=== PATIENT | male | born 1955 | race Caucasian/White ===

== ENCOUNTER → 2020-10-01 | Outpatient (CLI) | payer OTHER, MEDICARE ==
[~2020-10-01] MED LIST: ARTIFICIAL TEA1 EACH OP; ASPIR 8181 MG PO; ASPIRIN CHEWABL81 MG PO; ASPIRIN EC81 MG PO; AUGMENTIN 875-1 EACH PO; BACTROBAN CREAM15 GM TOP; BUSPAR 10MG10 MG PO; CALCIUM ANTACI200 MG PO; CELEBREX100 MG PO; CELEBREX200 MG PO; CLOPIDOGREL75 MG PO; COLACE 100MG C100 MG PO; COLACE100 MG PO; COZAAR 50MG TAB50 MG PO; DEPAKOTE ER250 MG PO; DESYREL 50 MG T50 MG PO; DOLOBID 500 MG500 MG PO; DULCOLAX10 MG PR; EFFEXOR XR 75 M75 MG PO; FLAGYL500 MG PO; FLEXERIL 10 MG10 MG PO; GLUCOPHAGE1000 MG PO; GLUCOPHAGE500 MG PO; HUMULIN 70100 UNIT/1 SQ; IBUPROFEN600 MG PO; KEFLEX CAP 500500 MG PO; KLONOPIN TAB 00.5 MG PO; LIPITOR TAB 2020 MG PO; LIPITOR80 MG PO; LISINOPRIL5 MG PO; MELOXICAM15 MG PO; METFORMIN HCL500 MG PO; METHOCARBAMOL750 MG PO; MOBIC7.5 MG PO; MULTIVITAMINS1 EAC1 PO; NEURONTIN 300300 MG PO; NEURONTIN 400400 MG PO; NOVOLIN 70100 UNIT/1 SQ; NOVOLOG MI100 UNITS/ SQ; PEPCID20 MG PO; PEPCID40 MG PO; PLAVIX 75 MG TA75 MG PO; PREVACID30 MG PO; PRINIVIL5 MG PO; PROVENTIL HFA 61 INH INH; ROBAXIN 750 MG750 MG PO; SENNA-DOCUSATE1 EACH PO; TERAZOSIN HCL2 MG PO; TESSALON PERLE100 MG PO; TRAZODONE HCL100 MG PO; TRAZODONE HCL50 MG PO; VENLAFAXINE HC150 M1 PO; VENLAFAXINE HC150 MG PO; VENTOLIN HFA 66.7 GM INH; VOLTAREN ARTHRI20 GM TOP; VOLTAREN100 GM TP; Voltaren Gel 1% TOP; ZOFRAN ODT4 MG PO; ZYVOX600 MG PO; [UNRECOGNIZED DRUG - OTHER] TP; [UNRECOGNIZED DRUG - OTHER] TP; [UNRECOGNIZED DRUG - REMARK]
== END ==
LOC: KOH-I 15:20
DX: M25.511 Pain in right shoulder (principal); M25.512 Pain in left shoulder; G89.29 Other chronic pain; M25.561 Pain in right knee; M25.562 Pain in left knee; M17.0 Bilateral primary osteoarthritis of knee
CPT/HCPCS: 73030; 73562

== ENCOUNTER 2020-10-12 20:45 | Emergency (ER) | payer MEDICARE, OTHER ==
[~2020-10-12 20:45] MED LIST changes: -ASPIRIN EC81 MG PO; -CLOPIDOGREL75 MG PO; -COLACE100 MG PO; -COZAAR 50MG TAB50 MG PO; -DEPAKOTE ER250 MG PO; -DESYREL 50 MG T50 MG PO; -EFFEXOR XR 75 M75 MG PO; -GLUCOPHAGE1000 MG PO; -LIPITOR80 MG PO; -PEPCID20 MG PO; -PREVACID30 MG PO; -TRAZODONE HCL50 MG PO; -VOLTAREN ARTHRI20 GM TOP
[2020-10-12] MEDS ORDERED: VENTOLIN HFA 66.7 GM INH (23:30)
== END 2020-10-12 23:40 | disposition home or self-care (01) ==
LOC: ER1 20:45
DX: J06.9 Acute upper respiratory infection, unspecified (principal); E11.9 Type 2 diabetes mellitus without complications; Z20.822 Contact with and (suspected) exposure to COVID-19; Z88.2 Allergy status to sulfonamides; Z88.8 Allergy status to other drugs, medicaments and biological substances; F17.200 Nicotine dependence, unspecified, uncomplicated
CPT/HCPCS: 71045; 99283; U0002

== ENCOUNTER 2020-10-27 15:40 | Observation (INO) | payer MEDICARE, OTHER ==
[~2020-10-27] VITALS: Ht 172.7 cm; Wt 94.5 kg
[2020-10-27 16:29] LABS: HEMOGLOBIN 15.8 gm/dl (14.0-17.5); RED BLOOD COUNT 4.96 M/UL (4.20-5.50); WHITE BLOOD COUNT 9.9 K/UL (4.5-11.0)
[2020-10-27 17:10] LABS: BUN/CREATININE RATIO 34 (0-10)
[2020-10-27] MEDS ORDERED: TRAZODONE HCL50 MG PO (23:04)
[2020-10-28] MEDS ORDERED: COZAAR 50MG TAB50 MG PO (14:33)
[2020-10-28] MEDS ORDERED: EFFEXOR XR 75 M75 MG PO (14:34)
[2020-10-28] MEDS ORDERED: DESYREL 50 MG T50 MG PO (14:34)
[2020-10-28] MEDS ORDERED: BUSPAR 10MG10 MG PO (14:35)
[2020-10-28] MEDS ORDERED: GLUCOPHAGE1000 MG PO (14:35)
[2020-10-28] MEDS ORDERED: VOLTAREN ARTHRI20 GM TOP (14:36)
[2020-10-28] MEDS ORDERED: DEPAKOTE ER250 MG PO (14:37)
[2020-10-28] MEDS ORDERED: LIPITOR80 MG PO (14:37)
[2020-10-28] MEDS ORDERED: COLACE100 MG PO (14:39)
[2020-10-29 03:27] LABS: RED BLOOD COUNT 5.05 M/UL (4.20-5.50); WHITE BLOOD COUNT 9.7 K/UL (4.5-11.0)
[2020-10-29 04:11] LABS: BUN/CREATININE RATIO 22 (0-10)
[2020-10-29] MEDS ORDERED: ASPIRIN EC81 MG PO (11:19)
[2020-10-29] MEDS ORDERED: CLOPIDOGREL75 MG PO (11:19)
[2020-10-29] MEDS ORDERED: COZAAR 50MG TAB50 MG PO (11:23)
== END 2020-10-29 12:51 | disposition home or self-care (01) ==
LOC: ER1 15:40 → M/S 21:36 → PROG CARE 21:36 → CDU 21:36 → PROG CARE 10-28 04:40 → M/S 10-28 17:39
PROVIDERS: Internal Medicine; Physician Assistant; ADMIT Internal Medicine
DX: R55 Syncope and collapse (principal); E11.65 Type 2 diabetes mellitus with hyperglycemia; I11.9 Hypertensive heart disease without heart failure; E78.5 Hyperlipidemia, unspecified; F41.9 Anxiety disorder, unspecified; F32.9 Major depressive disorder, single episode, unspecified; E11.40 Type 2 diabetes mellitus with diabetic neuropathy, unspecified; M19.90 Unspecified osteoarthritis, unspecified site; F17.210 Nicotine dependence, cigarettes, uncomplicated; G40.909 Epilepsy, unspecified, not intractable, without status epilepticus; F45.8 Other somatoform disorders; E66.3 Overweight; E44.0 Moderate protein-calorie malnutrition; Z68.31 Body mass index [BMI] 31.0-31.9, adult; Z20.822 Contact with and (suspected) exposure to COVID-19; Z86.73 Personal history of transient ischemic attack (TIA), and cerebral infarction without residual deficits; Z79.899 Other long term (current) drug therapy; Z79.02 Long term (current) use of antithrombotics/antiplatelets; Z79.4 Long term (current) use of insulin; Z88.2 Allergy status to sulfonamides; Z79.82 Long term (current) use of aspirin
CPT/HCPCS: ECHO; 36415; 70450; 70551; 71045; 80053; 80061; 82140; 82550; 82553; 82607; 82746; 82962; 83036; 83874; 84439; 84443; 84484; 85025; 85027; 85652; 86140; 93005; 93306; 93880; 94664; 94760; 96372; 96374; 97162; 97165; 99285; G0378; J1650; J2405; J7030; U0002

== ENCOUNTER 2020-11-08 19:47 | Emergency (ER) | payer MEDICARE, OTHER ==
[~2020-11-08 19:47] MED LIST changes: +ASPIRIN EC81 MG PO; +CLOPIDOGREL75 MG PO; +COLACE100 MG PO; +COZAAR 50MG TAB50 MG PO; +DEPAKOTE ER250 MG PO; +DESYREL 50 MG T50 MG PO; +EFFEXOR XR 75 M75 MG PO; +GLUCOPHAGE1000 MG PO; +LIPITOR80 MG PO; +TRAZODONE HCL50 MG PO; +VOLTAREN ARTHRI20 GM TOP
[2020-11-08 21:02] LABS: HEMOGLOBIN 15.4 gm/dl (14.0-17.5); RED BLOOD COUNT 4.82 M/UL (4.20-5.50); WHITE BLOOD COUNT 9.4 K/UL (4.5-11.0)
[2020-11-08 21:35] LABS: BUN/CREATININE RATIO 22 (0-10)
== END 2020-11-08 23:48 | disposition home or self-care (01) ==
LOC: ER1 19:47
PROVIDERS: Emergency Medicine
DX: E11.65 Type 2 diabetes mellitus with hyperglycemia (principal); Z86.73 Personal history of transient ischemic attack (TIA), and cerebral infarction without residual deficits; I10 Essential (primary) hypertension; Z79.4 Long term (current) use of insulin; Z88.2 Allergy status to sulfonamides; Z88.8 Allergy status to other drugs, medicaments and biological substances
CPT/HCPCS: 71045; 80053; 81001; 82009; 82550; 82553; 82962; 83690; 83735; 83874; 84484; 85025; 93005; 99285

== ENCOUNTER 2021-01-24 18:20 | Emergency (ER) | payer MEDICARE ==
[2021-01-24 19:31] LABS: HEMOGLOBIN 16.3 gm/dl (14.0-17.5); WHITE BLOOD COUNT 9.2 K/UL (4.5-11.0)
[2021-01-24 19:48] LABS: BUN/CREATININE RATIO 22 (0-10)
[2021-01-24] MEDS ORDERED: PEPCID20 MG PO (22:06)
[2021-01-24] MEDS ORDERED: PREVACID30 MG PO (22:06)
== END 2021-01-24 23:05 | disposition home or self-care (01) ==
LOC: ER1 18:20
PROVIDERS: Physician Assistant
DX: R10.9 Unspecified abdominal pain (principal); R12 Heartburn; E11.9 Type 2 diabetes mellitus without complications; I10 Essential (primary) hypertension; F17.200 Nicotine dependence, unspecified, uncomplicated; Z88.2 Allergy status to sulfonamides; Z88.8 Allergy status to other drugs, medicaments and biological substances; Z79.899 Other long term (current) drug therapy
CPT/HCPCS: 80053; 80185; 81001; 82150; 82550; 82553; 83690; 83874; 84484; 85025; 93005; 96374; 96375; 99284; C9113; J2405; J7030; Q9967

== ENCOUNTER 2021-01-26 22:34 | Emergency (ER) | payer MEDICARE ==
[~2021-01-26 22:34] MED LIST changes: +PEPCID20 MG PO; +PREVACID30 MG PO
[2021-01-27 01:15] LABS: HEMOGLOBIN 16.4 gm/dl (14.0-17.5); RED BLOOD COUNT 5.01 M/UL (4.20-5.50); WHITE BLOOD COUNT 9.4 K/UL (4.5-11.0)
[2021-01-27 02:05] LABS: BUN/CREATININE RATIO 17 (0-10)
== END 2021-01-27 06:43 | disposition home or self-care (01) ==
LOC: ER1 22:34
PROVIDERS: Physician Assistant
DX: R56.9 Unspecified convulsions (principal); E11.65 Type 2 diabetes mellitus with hyperglycemia; F10.10 Alcohol abuse, uncomplicated; Y90.8 Blood alcohol level of 240 mg/100 ml or more; I10 Essential (primary) hypertension; Z88.2 Allergy status to sulfonamides; Z79.899 Other long term (current) drug therapy
CPT/HCPCS: 70450; 80053; 80185; 83735; 84100; 85025; 93005; 96374; 99285; G0480; J3411; J3475; J7030

== ENCOUNTER 2021-02-27 16:19 | Emergency (ER) | payer MEDICARE ==
[2021-02-27 19:06] LABS: HEMOGLOBIN 15.5 gm/dl (14.0-17.5); RED BLOOD COUNT 4.8 M/UL (4.20-5.50); WHITE BLOOD COUNT 8.6 K/UL (4.5-11.0)
[2021-02-27 19:21] LABS: BUN/CREATININE RATIO 24 (0-10)
== END 2021-02-27 22:30 | disposition home or self-care (01) ==
LOC: ER1 16:19
PROVIDERS: Preventive Medicine Occupational Medicine
DX: R53.83 Other fatigue (principal); I10 Essential (primary) hypertension; F17.210 Nicotine dependence, cigarettes, uncomplicated; Z20.822 Contact with and (suspected) exposure to COVID-19
CPT/HCPCS: 0240U; 71045; 80053; 81001; 85025; 87086; 93005; 99285

== ENCOUNTER 2021-03-12 12:21 | Emergency (ER) | payer MEDICARE ==
[2021-03-12 13:05] LABS: HEMOGLOBIN 15.3 gm/dl (14.0-17.5); RED BLOOD COUNT 4.96 M/UL (4.20-5.50); WHITE BLOOD COUNT 8.5 K/UL (4.5-11.0)
[2021-03-12 13:30] LABS: BUN/CREATININE RATIO 25 (0-10)
== END 2021-03-12 17:40 | disposition home or self-care (01) ==
LOC: ER1 12:21
PROVIDERS: Physician Assistant
DX: R07.89 Other chest pain (principal); E11.65 Type 2 diabetes mellitus with hyperglycemia; Z20.822 Contact with and (suspected) exposure to COVID-19; R10.10 Upper abdominal pain, unspecified; I10 Essential (primary) hypertension; Z86.718 Personal history of other venous thrombosis and embolism; G40.909 Epilepsy, unspecified, not intractable, without status epilepticus; Z87.891 Personal history of nicotine dependence
CPT/HCPCS: 0240U; 71045; 80053; 82550; 82553; 83690; 83874; 84484; 85025; 93005; 96365; 99285; G0480

== ENCOUNTER 2021-05-04 22:49 | Emergency (ER) | payer MEDICARE ==
[2021-05-04 23:30] LABS: HEMOGLOBIN 16.8 gm/dl (14.0-17.5); RED BLOOD COUNT 5.28 M/UL (4.20-5.50); WHITE BLOOD COUNT 10.4 K/UL (4.5-11.0)
[2021-05-05 00:17] LABS: BUN/CREATININE RATIO 13 (0-10)
== END 2021-05-05 01:55 | disposition home or self-care (01) ==
LOC: ER1 22:49
PROVIDERS: Family Medicine
DX: U07.1 COVID-19 (principal); E11.9 Type 2 diabetes mellitus without complications; I10 Essential (primary) hypertension; F17.210 Nicotine dependence, cigarettes, uncomplicated
CPT/HCPCS: 71045; 80053; 81001; 82550; 82553; 82962; 83615; 83690; 83874; 84484; 85025; 86140; 93005; 96374; 96375; 99284; J1885; J2405; J7030; U0002

== ENCOUNTER 2021-07-19 12:15 | Emergency (ER) | payer MEDICARE ==
[2021-07-19 13:10] LABS: HEMOGLOBIN 14.6 gm/dl (14.0-17.5); RED BLOOD COUNT 4.7 M/UL (4.20-5.50)
[2021-07-19 13:39] LABS: BUN/CREATININE RATIO 15 (0-10)
[2021-07-19] MEDS ORDERED: PROVENTIL HFA6.7 GM INH (15:51)
[2021-07-19] MEDS ORDERED: BENZONATATE100 MG PO (15:51)
== END 2021-07-19 16:00 | disposition home or self-care (01) ==
LOC: ER1 12:15
PROVIDERS: Emergency Medicine
DX: J06.9 Acute upper respiratory infection, unspecified (principal); R05.9 Cough, unspecified; E11.9 Type 2 diabetes mellitus without complications; I10 Essential (primary) hypertension; Z20.822 Contact with and (suspected) exposure to COVID-19
CPT/HCPCS: 71045; 80053; 82550; 82553; 83874; 84484; 85025; 85379; 93005; 99284; U0002

== ENCOUNTER 2022-03-29 13:25 | Emergency (ER) | payer MEDICARE ==
[~2022-03-29 13:25] MED LIST changes: +BENZONATATE100 MG PO; +PROVENTIL HFA6.7 GM INH
[2022-03-29 14:18] LABS: HEMOGLOBIN 16.4 gm/dl (14.0-17.5); RED BLOOD COUNT 5.39 M/UL (4.20-5.50); WHITE BLOOD COUNT 9.1 K/UL (4.5-11.0)
[2022-03-29 14:57] LABS: BUN/CREATININE RATIO 18 (0-10)
[2022-03-29] MEDS ORDERED: ASPIRIN EC81 MG PO (15:32)
== END 2022-03-29 15:48 | disposition home or self-care (01) ==
LOC: ER1 13:25
PROVIDERS: Emergency Medicine
DX: G62.9 Polyneuropathy, unspecified (principal); R73.9 Hyperglycemia, unspecified
CPT/HCPCS: 70450; 80053; 84484; 85025; 93005; 99285